=== PATIENT | male | born 1940 | race Caucasian/White ===

== ENCOUNTER 2016-07-13 10:08 | Day surgery (SDC) | payer MEDICARE ==
[~2016-07-13] VITALS: Ht 180.3 cm; Wt 107.0 kg
[~2016-07-13 10:08] MED LIST: BUPIVACAINE/PF 0.5% ONE; HEPARIN 1,000 UNITS/ML, 10ML ONE; PROTAMINE SULFATE 10 MG/ML, 5ML ONE
[2016-07-13] MEDS ORDERED: PRAV20TA2 PO (11:01)
[2016-07-13] MEDS ORDERED: CHOL200012 PO (11:01)
[2016-07-13] MEDS ORDERED: INSU300I SC (11:01)
[2016-07-13] MEDS ORDERED: CALC0.5C2 PO (11:01)
[2016-07-13] MEDS ORDERED: PANT40TA3 PO (11:01)
[2016-07-13] MEDS ORDERED: ASPI-515 PO (11:01)
[2016-07-13] MEDS ORDERED: FERR324T5 PO (11:01)
[2016-07-13] MEDS ORDERED: COUMADIN (11:01)
[2016-07-13] MEDS ORDERED: LOSA50TA6 PO (11:01)
[2016-07-13] MEDS ORDERED: SODI650T PO (11:01)
[2016-07-13] MEDS ORDERED: GLIP10TA13 PO (11:01)
[2016-07-13 11:25] VITALS: BP 167/91
[2016-07-13] MEDS ORDERED: TORS20TA2 PO (11:25)
[2016-07-13] MEDS ORDERED: FINA5TAB4 PO (11:25)
[2016-07-13] MEDS ORDERED: WARF5TAB PO (11:25)
[2016-07-13] MEDS ORDERED: DIGO125T PO (11:25)
[2016-07-13] MEDS ORDERED: SODIUM CHLORIDE 0.9% 1,000 ML IV SCH (11:31)
[2016-07-13] MEDS ORDERED: FENTANYL PF 100 MCG/2ML ONE ×2 (14:52→16:16)
[2016-07-13] MEDS ORDERED: BUPIVACAINE/PF-EPI 0.25% 1:200K ONE (15:18)
[2016-07-13] MEDS ORDERED: CEFAZOLIN 1,000 MG ONE (15:38)
[2016-07-13] MEDS ORDERED: PROPOFOL 10 MG/ML, 20ML ONE (15:38)
[2016-07-13] MEDS ORDERED: ONDANSETRON 2MG/ML, 2ML ONE (15:38)
[2016-07-13] MEDS ORDERED: ALBUTEROL SULFATE 2.5 MG/3 ML NPPB PRN (16:30)
[2016-07-13] MEDS ORDERED: METOPROLOL 1 MG/ML, 5ML IV PRN (16:30)
[2016-07-13] MEDS ORDERED: FENTANYL PF 100 MCG/2ML IV PRN (16:30)
[2016-07-13] MEDS ORDERED: ACETAMINOPHEN 325 MG TABLET PO PRN (16:30)
[2016-07-13] MEDS ORDERED: OXYcodone 5 MG/5 ML ORAL.SOL UDC PO PRN (16:30)
[2016-07-13] MEDS ORDERED: HYDROmorphone 1 MG/ML, 1ML IV PRN (16:30)
[2016-07-13] MEDS ORDERED: hydrALAzine 20 MG/ML, 1ML IV PRN (16:30)
[2016-07-13] MEDS ORDERED: ACETAMINOPHEN 650 MG/20.3 ML UDC ONE (17:10)
[2016-07-13] MEDS ORDERED: OXYcodone 5 MG/5 ML ORAL.SOL UDC ONE (17:10)
== END 2016-07-13 19:10 | disposition home or self-care (01) ==
LOC: OUT 10:08
PROVIDERS: ATTEND Surgery Vascular Surgery
DX: E11.22 Type 2 diabetes mellitus with diabetic chronic kidney disease (principal); I12.0 Hypertensive chronic kidney disease with stage 5 chronic kidney disease or end stage renal disease; N18.6 End stage renal disease; Z98.52 Vasectomy status; I25.10 Atherosclerotic heart disease of native coronary artery without angina pectoris; I48.91 Unspecified atrial fibrillation; Z95.5 Presence of coronary angioplasty implant and graft; M19.90 Unspecified osteoarthritis, unspecified site; Z79.4 Long term (current) use of insulin; E20.9 Hypoparathyroidism, unspecified; E55.9 Vitamin D deficiency, unspecified; D64.9 Anemia, unspecified; Z86.14 Personal history of Methicillin resistant Staphylococcus aureus infection; H54.7 Unspecified visual loss; H91.8X3 Other specified hearing loss, bilateral; Z87.891 Personal history of nicotine dependence; Z88.8 Allergy status to other drugs, medicaments and biological substances; I45.10 Unspecified right bundle-branch block; Z96.652 Presence of left artificial knee joint
CPT/HCPCS: 36415; 36821; 49324; 80047; 85610; 93005; J0690; J1644; J2405; J2704; J3010; J2720; J3490

== ENCOUNTER 2017-03-19 08:02 | Day surgery (SDC) | payer MEDICARE ==
[~2017-03-19] VITALS: Ht 180.3 cm; Wt 99.9 kg
[~2017-03-19 08:02] MED LIST changes: +ASPI-515 PO; +CALC0.5C2 PO; +CHOL200074 PO; +COUMADIN; +DIGO125T PO; +FERR324T5 PO; +FINA5TAB4 PO; +GLIP10TA13 PO; +INSU300I SC; +LOSA50TA6 PO; +PANT40TA3 PO; +PRAV20TA2 PO; -PROTAMINE SULFATE 10 MG/ML, 5ML ONE; +SODI650T PO; +TORS20TA2 PO; +WARF5TAB PO
[2017-03-19] MEDS ORDERED: SODIUM CHLORIDE 0.9% 1,000 ML IV SCH (09:18)
[2017-03-19 09:22] VITALS: BP 137/70
[2017-03-19] MEDS ORDERED: DEXTROSE 50%, 50ML SYRINGE IVPush ONE (09:30)
[2017-03-19] MEDS ORDERED: AURYXIA PO (09:34)
[2017-03-19] MEDS ORDERED: INSU100C SQ-INSULIN (09:42)
[2017-03-19 09:44] LABS: INTERNATIONAL NORMALIZED RATIO 1.26 (0.93-1.1); PROTHROMBIN TIME 12.9 Seconds (9.6-11.5)
[2017-03-19] MEDS ORDERED: FENTANYL PF 100 MCG/2ML ONE (10:27)
[2017-03-19] MEDS ORDERED: MIDAZOLAM 1 MG/ML, 2ML ONE (10:28)
[2017-03-19] MEDS ORDERED: PROPOFOL 10 MG/ML, 20ML ONE (11:02)
[2017-03-19] MEDS ORDERED: CEFAZOLIN 1,000 MG ONE (11:02)
[2017-03-19] MEDS ORDERED: GLYCOPYRROLATE 0.2MG/1ML, 5ML ONE (11:02)
[2017-03-19] MEDS ORDERED: ONDANSETRON 2MG/ML, 2ML ONE (11:02)
[2017-03-19] MEDS ORDERED: NEOSTIGMINE 1 MG/ML, 10ML ONE (11:02)
[2017-03-19] MEDS ORDERED: ROCURONIUM 10MG/ML,5ML ONE (11:02)
[2017-03-19] MEDS ORDERED: ACETAMINOPHEN 325 MG TABLET PO PRN (11:30)
[2017-03-19] MEDS ORDERED: OXYcodone 5 MG/5 ML ORAL.SOL UDC PO PRN (11:30)
[2017-03-19] MEDS ORDERED: MIDAZOLAM 1 MG/ML, 2ML IV PRN (11:30)
[2017-03-19] MEDS ORDERED: LABETALOL 5MG/ML, 20ML IV PRN (11:30)
[2017-03-19] MEDS ORDERED: ONDANSETRON 2MG/ML, 2ML IVPush PRN (11:30)
[2017-03-19] MEDS ORDERED: ALBUTEROL SULFATE 2.5 MG/3 ML NPPB PRN (11:30)
[2017-03-19] MEDS ORDERED: HYDROmorphone 1 MG/ML, 1ML IV PRN (11:30)
[2017-03-19] MEDS ORDERED: PROMETHAZINE 12.5 MG SUPP PR PRN (11:30)
[2017-03-19] MEDS ORDERED: EPHEDRINE 50 MG/ML, 1ML IVPush PRN (11:30)
[2017-03-19] MEDS ORDERED: FENTANYL PF 100 MCG/2ML IV PRN (11:30)
[2017-03-19] MEDS ORDERED: HYDROcodone/APAP 7.5-325MG/15ML UDC PO PRN (11:30)
[2017-03-19] MEDS ORDERED: hydrALAzine 20 MG/ML, 1ML IV PRN (11:30)
[2017-03-19] MEDS ORDERED: METOPROLOL 1 MG/ML, 5ML IV PRN (11:30)
[2017-03-19] MEDS ORDERED: BUPIVACAINE/PF 0.5% ONE (14:10)
== END 2017-03-19 13:39 ==
LOC: OUT 08:02
PROVIDERS: ATTEND Surgery Vascular Surgery
DX: T85.611A Breakdown (mechanical) of intraperitoneal dialysis catheter, initial encounter (principal); E11.22 Type 2 diabetes mellitus with diabetic chronic kidney disease; N18.6 End stage renal disease; I25.10 Atherosclerotic heart disease of native coronary artery without angina pectoris; Z88.6 Allergy status to analgesic agent; Z95.5 Presence of coronary angioplasty implant and graft; Y83.8 Other surgical procedures as the cause of abnormal reaction of the patient, or of later complication, without mention of misadventure at the time of the procedure; Y92.89 Other specified places as the place of occurrence of the external cause
CPT/HCPCS: 36415; 49423; 80047; 82962; 85610; 93005; C1750; J0690; J1644; J2250; J2405; J2704; J2710; J3010; J3490; J7030

== ENCOUNTER 2017-04-02 09:09 | Day surgery (SDC) | payer MEDICARE ==
[~2017-04-02] VITALS: Ht 180.3 cm; Wt 100.5 kg
[~2017-04-02 09:09] MED LIST changes: +AURYXIA PO; +EPINEPHRINE 1 MG/ML, 1ML ONE; +INSU100C SQ-INSULIN
[2017-04-02 10:50] VITALS: BP 151/89
[2017-04-02] MEDS ORDERED: SODIUM CHLORIDE 0.9% 1,000 ML IV SCH (11:18)
[2017-04-02] MEDS ORDERED: INSU500I SQ (11:27)
[2017-04-02] MEDS ORDERED: POLY17PO5 PO (11:27)
[2017-04-02] MEDS ORDERED: DOCU240C53 PO (11:27)
[2017-04-02] MEDS ORDERED: IRON18TA PO (11:27)
[2017-04-02] MEDS ORDERED: FENTANYL PF 100 MCG/2ML ONE ×2 (13:45→15:38)
[2017-04-02] MEDS ORDERED: ONDANSETRON 2MG/ML, 2ML ONE (13:46)
[2017-04-02] MEDS ORDERED: SUCCINYLCHOLINE 20 MG/ML, 10ML ONE (13:46)
[2017-04-02] MEDS ORDERED: PROPOFOL 10 MG/ML, 20ML ONE (13:46)
[2017-04-02] MEDS ORDERED: CEFAZOLIN 1,000 MG ONE (13:46)
[2017-04-02] MEDS ORDERED: DEXAMETHASONE 4 MG/ML, 1ML ONE (13:46)
[2017-04-02] MEDS ORDERED: GLYCOPYRROLATE 0.2MG/1ML, 5ML ONE (14:25)
[2017-04-02] MEDS ORDERED: NEOSTIGMINE 1 MG/ML, 10ML ONE (14:25)
[2017-04-02] MEDS ORDERED: LIDOCAINE-MPF 2% ,5ML ONE (14:25)
[2017-04-02] MEDS ORDERED: ROCURONIUM 10 MG/ML,10ML ONE (14:25)
[2017-04-02] MEDS ORDERED: FENTANYL PF 100 MCG/2ML IV PRN (15:00)
[2017-04-02] MEDS ORDERED: morphine SULFATE 10 MG/ML, 1ML IV PRN (15:00)
[2017-04-02] MEDS ORDERED: ONDANSETRON 2MG/ML, 2ML IVPush PRN (15:00)
[2017-04-02] MEDS ORDERED: hydrALAzine 20 MG/ML, 1ML IV PRN (15:00)
[2017-04-02] MEDS ORDERED: ALBUTEROL/IPRATROPIUM 2.5MG/0.5MG, 3 ML NPPB PRN (15:00)
[2017-04-02] MEDS ORDERED: PROMETHAZINE 25 MG/ML, 1ML IV PRN (15:00)
[2017-04-02] MEDS ORDERED: OXYcodone 5 MG/5 ML ORAL.SOL UDC ONE (15:47)
[2017-04-02] MEDS ORDERED: ACETAMINOPHEN 650 MG/20.3 ML UDC ONE (15:47)
== END 2017-04-02 17:20 | disposition home or self-care (01) ==
LOC: OUT 09:09
PROVIDERS: ATTEND Surgery Vascular Surgery
DX: T82.42XA Displacement of vascular dialysis catheter, initial encounter (principal); E11.22 Type 2 diabetes mellitus with diabetic chronic kidney disease; I12.0 Hypertensive chronic kidney disease with stage 5 chronic kidney disease or end stage renal disease; N18.6 End stage renal disease; I25.10 Atherosclerotic heart disease of native coronary artery without angina pectoris; E78.5 Hyperlipidemia, unspecified; Y83.8 Other surgical procedures as the cause of abnormal reaction of the patient, or of later complication, without mention of misadventure at the time of the procedure; Y92.89 Other specified places as the place of occurrence of the external cause
CPT/HCPCS: 36415; 49325; 80047; J0171; J0330; J0690; J1100; J1644; J2405; J2704; J2710; J3490; J7030; J3010